=== PATIENT | female | born 1975 | race Hispanic/Latino ===

== ENCOUNTER 2024-04-09 21:15 | Emergency (ER) | payer OTHER ==
--- OUTSIDE RECORDS SUMMARY | 2024-04-09 21:18 | XMS REPORT | Continuity of Care Document ---
Author Name Unknown Address [address] [facility] [address] [place], [place] [id number] [place] [address] thconnect Address [address] [facility] [address] [place] [address] Care Team Providers Care Family Resource Management Professor Name Role Phone UZMA FERRARI Attending Clinician Unavailable LAB90 Attending Clinician Unavailable Payers Payer Name Policy Type Policy Number Effective Date Expirati on Date Source [employer] 94 ON 9 [id number] 2023 00:00:00 Problems Condition Name Condition Details Condition Category Status Onset Date Resolution Date Last Treatment Date Treating Clinician Comments Source BMI 50.0-59.9, adult BMI 50.0-59.9, adult Disease Active 03-15 00:00: 00 Naveen briseno Prediabete s Prediabete s Disease Active 03-15 00:00: 00 Naveen briseno Social History Social Habit Start Date Stop Date Quantity Comments Source History of tobacco use Passive smoker Naveen barney - External Sexual orientation Leroy Braga - External Alcoholic beverage intake 2024-03-15 00:00:00 2024-03-15 00:00:00 Ex-drinker (finding) Naveen Braga - External History of Social function 2024-03-15 00:00:00 2024-03-15 00:00:00 Naveen Braga - External Sex [birth year] at 1975 00:00:00 1975 00:00:00 Naveen Braga - External Smoking Status Start Date Stop Date Source Never smoked tobacco Naveen Braga - External Immunizations Ordered Immunization Name Filled Immunization Name Date Status Comments Source Influenza Virus Vaccine, No Preserv, age 6 months and up Unknown Completed Naveen Asaf lamasbold - External Covid-19 Vaccine Moderna (Spikevax), Mrna-lnp, Cm Protein, Pf Unknown Completed Naveen Braga - External Covid-19 Vaccine Moderna (Spikevax), Mrna-lnp, Cm Protein, Pf Unknown Completed Naveen Braga - External Tdap- (Boostrix, Adacel) Unknown Completed Naveen Braga - External Tdap- (Boostrix, Adacel) Unknown Completed Naveen Braga - External Vital Signs Vital Name Observation Time Observation Value Comments S ource Systolic blood pressure 2024-03-15 14:40:00 102 mm[Hg] Naveen Miramonteso ld - External Diastolic blood pressure 2024-03-15 14:40:00 70 mm[Hg] Naveen Miramonteso ld - External Heart rate 2024-03-15 14:40:00 76 /min Tuanse ita Braga - External Body temperature 2024-03-15 14:40:00 35.94 Ileana Naveen Braga - External Respiratory rate 2024-03-15 14:40:00 16 /min Naveen Braga - External Body height 2024-03-15 14:40:00 152.4 cm Glory Braga - External Body weight 2024-03-15 14:40:00 130.182 kg Glory lamas Seybold - External BMI 2024-03-15 14:40:00 56.05 kg/m2 Glory lamas Seybold - External Encounters Start Date/Time End Date/Time Encounter Type Admission Type Attending [facility] Care Department Encounter ID Source 2024-05-08 08:00:00 2024-05-08 08:00:00 Outpatient UZMA FERRARI [id number] Naveen Braga 2024-04-24 11:00:00 2024-04-24 11:00:00 Outpatient UZMA FERRARI [id number] Naveen Braga 2024-03-15 10:25:00 2024-03-15 10:25:00 Outpatient LAB90 [facility]OD[facility] [id number] [facility] 2024-03-15 09:30:00 2024-03-15 09:30:00 Outpatient UZMA FERRARIALESSANDRO HODGE [id number] Naveen Braga 2023-11-02 08:58:55 2023-11-02 08:58:55 Outpatient [facility] [id number] 2023-07-14 08:49:44 2023-07-14 08:49:44 Outpatient [facility] [address] 2023-07-07 16:08:09 2023-07-07 16:08:09 Outpatient [facility] [address] 2023-07-06 10:51:46 2023-07-06 10:51:46 Outpatient [facility] [address] 2023-04-14 14:48:34 2023-04-14 14:48:34 Outpatient [facility] [id number] Notes Date/Time Note Provider Source 2024-03-15 09:48:46 Chief Complaint Patient presents with [facility] Care Establishing care. Milka Bazan MA II [facility]
[2024-04-09 23:52] LABS: Specific Gravity 1.023 (1.005-1.030); Sqamous Epithelial None Seen /HPF (None Seen); Urine Bacteria None Seen /HPF (<20); Urine Bilirubin NEGATIVE (Negative); Urine Blood Negative (Negative); Urine Clarity Extremely Turbid (Clear); Urine Color Yellow (Yellow); Urine Culture Reflex Order NOT NEEDED; Urine Glucose NEGATIVE (Negative); Urine Ketones NEGATIVE (Negative); Urine Microscopic Reflex YN ORDER UMIC; Urine Nitrite NEGATIVE (Negative); Urine Protein TRACE (Negative); Urine RBC None Seen /HPF (None Seen); Urine Urobilinogen 1+ (Normal); Urine WBC None Seen /HPF (<5)
[2024-04-10 01:54] LABS: Absolute Eosinophils 0.3 K/uL (0-0.5); Absolute Monocytes 0.5 K/uL (0.1-1.3); Absolute Neutrophil 5.2 K/uL (1.8-8.0); Basophils % 0.3 % (0-1.3); Eosinophils % 3.3 % (0-4.4); Hemoglobin 13.5 g/dL (12.0-15.0); Lymphocytes % 33.3 % (15.3-44.8); MCH 28.4 pg (27.0-35.0); MCV 86.2 fL (80-100); MPV 7.9 fL (7.6-11.3); Neutrophils % 57.1 % (41.7-73.7); Platelets 288 thou/uL (152-406); RBC Red Blood Cell Count 4.76 M/uL (3.86-4.86); Red Cell Distribution Width 14.3 % (12.1-15.2)
[2024-04-10 02:03] LABS: Albumin 3.6 g/dL (3.4-5.0); Albumin/Globulin Ratio 0.8 (1.1-1.8); Anion Gap 7.8 mEq/L (5.0-15.0); Bilirubin Total 0.4 mg/dL (0.2-1.0); Globulin 4.4 g/dL (2.3-3.5); Potassium 3.8 mEq/L (3.5-5.1)
[2024-04-10] MEDS ORDERED: KETOROLAC 30 MG/ML INJ ONE (02:27)
[2024-04-10] MEDS ORDERED: NA CHLORIDE 0.9% 1,000 ML ONE (02:28)
--- NOTE | 2024-04-10 03:13 | ER ---
Nurse's Notes [facility] Name: Chitra Garzon Age: 48 yrs Sex: Female : 1975 Arrival Date: 04/09/2024 Time: 21:15 Bed 12 Private MD: Diagnosis: Other ovarian cysts Presentation: 04/09 22:13 Chief complaint: Patient's son or daughter states: Lower abdomen hurts, uterus hurts, vc1 hurts to pee, lower back hurts, peeing a little at a time. Coronavirus screen: Client denies travel out of the [place] in the last 14 days. At this time, the client does not indicate any symptoms associated with coronavirus-19. Ebola Screen: Patient negative for fever greater than or equal to 101.5 degrees Fahrenheit, and additional compatible Ebola Virus Disease symptoms Patient denies exposure to infectious person. Patient denies travel to an Ebola-affected area in the 21 days before illness onset. No symptoms or risks identified at this time. Initial Sepsis Screen: Does the patient meet any 2 criteria? No. Patient's initial sepsis screen is negative. Does the patient have a suspected source of infection? No. Patient's initial sepsis screen is negative. Risk Assessment: Do you want to hurt yourself or someone else? Patient reports no desire to harm self or others. Onset of symptoms is unknown. 22:13 Method Of Arrival: Ambulatory vc1 22:13 Acuity: JAYDON 3 vc1 Triage Assessment: 04/10 04:00 General:. General: Appears in no apparent distress. uncomfortable, Behavior is calm, vc1 cooperative, appropriate for age. 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 - Infectious Disease History:: Denies. - Social history:: Smoking status: Patient denies any tobacco usage or history of. Screenin/26 01:05 [facility] ED Fall Risk Assessment (Adult) History of falling in the last 3 months, vc1 including since admission No falls in past 3 months (0 pts) Confusion or Disorientation No (0 pts) Intoxicated or Sedated No (0 pts) Impaired Gait No (0 pts) Mobility Assist Device Used No (0 pt) Altered Elimination Yes (1 pt) Score/Fall Risk Level 0 - 2 = Low Risk Oriented to surroundings, Maintained a safe environment, Educated pt \T\ family on fall prevention, incl call for assistance when getting out of bed. 04:29 [facility] ED Fall Risk Assessment (Adult). Abuse screen: Denies threats or abuse. vc1 Nutritional screening: No deficits noted. Tuberculosis screening: No symptoms or risk factors identified. Assessment: 01:05 General: Appears in no apparent distress. uncomfortable, obese, well groomed, well vc1 developed, well nourished, Behavior is calm, cooperative, appropriate for age. Pain: Complains of pain in suprapubic area Pain radiates to low back area Pain currently is 6 out of 10 on a pain scale. Quality of pain is described as pressure, radiating, sharp. Neuro: Level of Consciousness is awake, alert, obeys commands, Oriented to person, place, time, situation, Appropriate for age. Cardiovascular: Heart tones S1 S2 Capillary refill < 3 seconds Patient's skin is warm and dry. Respiratory: Airway is patent Respiratory effort is even, unlabored, Respiratory pattern is regular, symmetrical, Breath sounds are clear bilaterally. GI: No deficits noted. No signs and/or symptoms were reported involving the gastrointestinal system. : Reports burning with urination, cramping, in bilateral lower quadrant(s) lower back urinary frequency. EENT: No deficits noted. No signs and/or symptoms were reported regarding the EENT system. Derm: No deficits noted. No signs and/or symptoms reported regarding the dermatologic system. 04:00 Reassessment: Patient appears in no apparent distress at this time. Patient and/or vc1 family updated on plan of care and expected duration. Pain level reassessed. Patient is alert, oriented x 3, equal unlabored respirations, skin warm/dry/pink. Patient states feeling better. Patient states symptoms have improved. Vital Signs: 04/09 22:18 BP 149 / 76; Pulse 80; Resp 16; Temp 97; Pulse Ox 99% ; vc1 04/10 04:30 BP 136 / 72; Pulse 78; Resp 17; Temp 97.6; Pulse Ox 99% ; vc1 ED Course: 04/09 21:18 Patient arrived in ED. jj6 21:29 Ren[facility] Valdez [facility]C [facility] kb 21:29 Luis Hernadez MD is Attending Physician. kb 22:16 Triage completed. vc1 22:17 Arm band placed on in hand. vc1 04/10 01:05 Patient has correct armband on for positive identification. Bed in low position. Call vc1 light in reach. 01:39 CBC with Diff Sent. ty 01:39 CMP Sent. ty 01:39 Lipase Sent. ty 01:39 Initial lab(s) drawn, by me, sent to lab. Inserted saline lock: 20 gauge in left ty antecubital area, using aseptic technique. Blood collected. Flushed with 10 mL NS. 02:24 CT Abd/Pelvis - IV Contrast Only In Process Unspecified. EDMS 03:13 Vivian Brown MD is Referral Physician. rt 04:30 Provided Education on: F/U WITH OBGYN. vc1 04:30 No provider procedures requiring assistance completed. IV discontinued, intact, vc1 bleeding controlled, No redness/swelling at site. Pressure dressing applied. Administered Medications: 02:39 Drug: NS 0.9% IV 1000 ml IV at 1 bolus Per protocol; 1000 mL bolus Route: IV; Rate: 1 vc1 bolus; Site: left antecubital; 03:40 Follow up: IV Status: Completed infusion; IV Intake: 1000ml vc1 02:39 Drug: TORadol - Ketorolac IVP 15 mg IVP once Route: IVP; Site: left antecubital; vc1 03:00 Follow up: Response: No adverse reaction; Marked relief of symptoms; Pain is decreased vc1 Medication: 04:30 VIS not applicable for this client. vc1 Intake: 03:40 IV: 1000ml; Total: 1000ml. vc1 Outcome: 03:13 Discharge ordered by . rt 04:15 Discharged to home ambulatory, with family, vc1 04:15 Condition: good 04:15 Discharge instructions given to patient, family, Instructed on discharge instructions, follow up and referral plans. medication usage, Demonstrated understanding of instructions, follow-up care, medications, Prescriptions given X 1, 04:30 Patient left the ED. vc1 Signatures: Dispatcher [employer] EDFL Renetta Valdez FNP-C FNP-CkDebi Johnson jj6 Radha Miguel RN RN vc1 Luis Hernadez MD MD rt Zenon Steen Corrections: (The following items were deleted from the chart) 04/09 22:19 22:13 BP 149 / 76; Pulse 80bpm; Resp 16bpm; Pulse Ox 100%; Temp 96.5F; 117.93 kg; vc1 Height 5 ft. 2 in.; BMI: 47.5; Pain 05/25, Adult; vc1
--- NOTE | 2024-04-10 03:13 | EDPHYS ---
Physician Documentation [facility] Name: Chitra Grazon Age: 48 yrs Sex: Female : 1975 Arrival Date: 04/09/2024 Time: 21:15 Bed 12 Private MD: ED Physician Luis Hernadez HPI: 04/10 00:38 This 48 yrs old Female presents to ER via Ambulatory with complaints of Pelvic kb Pain. 00:38 Pt is a 48 year old female who presents with dysuria, urinating small amounts, kb suprapubic pain that radiates to back. Denies fever, nausea, vomiting, diarrhea. No alleviating or aggravating factors. 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 - Infectious Disease History:: Denies. - Social history:: Smoking status: Patient denies any tobacco usage or history of. ROS: 04/10 00:37 Constitutional: As per HPI kb Exam: 00:38 Constitutional: This is a well developed, well nourished patient who is awake, alert, kb and in no acute distress. Head/Face: Normocephalic, atraumatic. ENT: Moist Mucous membranes Cardiovascular: Regular rate Respiratory: Respirations even and unlabored. No increased work of breathing. Talking in full sentences Back: No spinal tenderness. No costovertebral tenderness. Full range of motion. Skin: Warm, dry with normal turgor. Normal color. MS/ Extremity: Pulses equal, no cyanosis. Neurovascular intact. Full, normal range of motion. Neuro: Awake and alert, GCS 15, oriented to person, place, time, and situation. Moves all extremities. Normal gait. 00:38 Abdomen/GI: Palpation: soft, in all quadrants, mild abdominal tenderness, in the suprapubic area, 01:13 : Pelvic Exam: External exam: is normal, kb Vital Signs: 04/09 22:18 BP 149 / 76; Pulse 80; Resp 16; Temp 97; Pulse Ox 99% ; vc1 04/10 04:30 BP 136 / 72; Pulse 78; Resp 17; Temp 97.6; Pulse Ox 99% ; vc1 MDM: 04/09 21:29 Patient medically screened. 04/10 00:39 Differential diagnosis: uti, pyelonephritis, kidney stone. Data reviewed: vital signs, kb nurses notes. Test considered but Not performed: CT: ct scan considered but pt has no hematuria, no bacteria/wbc, no CVA tenderness. Historians other than the Patient: Family Member: family member. 01:22 Transition of care: After a detail discussion of the patient's case, care is kb transferred to Luis Hernadez MD. 04/09 22:18 Order name: Urinalysis w/ reflexes; Complete Time: 23:56 vc1 04/10 01:13 Order name: CBC with Diff; Complete Time: 02:06 kb 04/10 01:13 Order name: CMP; Complete Time: 02:06 kb 04/10 01:13 Order name: Lipase; Complete Time: 02:06 kb 04/10 01:13 Order name: CT Abd/Pelvis - IV Contrast Only 04/10 01:13 Order name: IV Saline Lock; Complete Time: 01:39 kb 04/10 01:13 Order name: Labs collected and sent; Complete Time: 01:39 kb Administered Medications: 02:39 Drug: NS 0.9% IV 1000 ml IV at 1 bolus Per protocol; 1000 mL bolus Route: IV; Rate: 1 vc1 bolus; Site: left antecubital; 03:40 Follow up: IV Status: Completed infusion; IV Intake: 1000ml vc1 02:39 Drug: TORadol - Ketorolac IVP 15 mg IVP once Route: IVP; Site: left antecubital; vc1 03:00 Follow up: Response: No adverse reaction; Marked relief of symptoms; Pain is decreased vc1 Disposition: 05:09 Co-signature as Attending Physician, Luis Hernadez MD I reviewed the patient's care rt provided by Advanced Practice Provider \T\ agree w/ the diagnosis \T\ care plan. I personally saw the pt \T\ performed a substantive portion of the visit, incldng all aspects of the (History/Exam/Medical Decision Making). Discussed with patient findings of ovarian cyst as well as radiologist recommendations for follow-up ultrasound. Patient instructed to follow-up with MIMEOGRAPH OPERATOR.. Disposition Summary: 04/10/24 03:13 Discharge Ordered Notes: Location: Home rt Problem: new rt Symptoms: have improved rt Condition: Stable rt Diagnosis - Other ovarian cysts rt Followup: rt - With: Vivian Brown MD - When: 2 - 3 days - Reason: Discharge Instructions: - Discharge Summary Sheet rt - Ovarian Cyst rt Forms: - Medication Reconciliation Form rt - Antibiotic Education rt - Prescription Opioid Use rt - Patient Portal Instructions rt - Leadership Thank You Letter rt Prescriptions: - TORADOL 10 MG TAB - take 1 tablet ORAL route every 6 hours as needed for pain; 15 tablet; Refills: rt 0, Product Selection Permitted Signatures: Dispatcher [employer] EDMS Renetta Valdez FNP-C FNP-Ckb Calcote, Vanessa, RN RN vc1 Luis Hernadez MD MD rt Corrections: (The following items were deleted from the chart) 01:13 01:13 CBC+H.LAB.BRZ ordered. EDMS EDMS 01:13 01:13 COMPREHENSIVE METABOLIC PANEL+C.LAB.BRZ ordered. EDMS EDMS 01:13 01:13 LIPASE+C.LAB.BRZ ordered. EDMS EDMS
[2024-04-10 04:51] VITALS: BP 149/76; TEMP 97; O2SAT 99
--- NOTE | 2024-04-12 07:57 | RAD REPORT ---
EXAM DESCRIPTION: CT - Abdomen Pelvis W Contrast - 04/10/2024 5:55 am EXAM DESCRIPTION: CT - Abdomen Pelvis W Contrast - 04/10/2024 5:55 am CLINICAL HISTORY: Female, 48 years old, ABD PAIN COMPARISON: None. TECHNIQUE: CT acquisition of the abdomen and pelvis following the administration of IV contrast. Cor onal and sagittal reformatted images provided. This exam was performed according to departmental dose -optimization program which includes automated exposure control, adjustment of the mA and/or kV accor ding to patient size, and/or use of iterative reconstruction technique. FINDINGS: SUPPORTIVE DEVICES: None. LOWER CHEST: Small nodular confluent opacities in the peripheral right lung base with subpleural spar ing. Unremarkable imaged heart. ABDOMEN AND PELVIS: Liver: Diffuse hypoenhancement relative to the spleen. Length measures 24 cm. Gallbladder and bile ducts: Normal. Pancreas: Normal. Spleen: Normal. Adrenal glands: Normal. Kidneys and ureters: Normal. Bladder: Normal. Reproductive organs: Simple right ovarian cyst measuring 3.4 x 3 x 3.1 cm. Unremarkable uterus and le ft ovary. GI tract: Normal caliber without wall thickening. No evidence of appendicitis. Vessels: Unremarkable. Lymph nodes: No evident adenopathy. Peritoneum: No evidence of ascites, fluid collection, or free air. Abdominal wall: Small fat containing umbilical hernia. MUSCULOSKELETAL: No acute osseous abnormality. Degenerative change of the spine and pelvis. IMPRESSION: 1. No acute abdominopelvic finding. 2. Hepatomegaly and steatosis. 3. Simple right ovarian 3.4 cm cyst. If patient is postmenopausal, follow-up ultrasound recommended in 3-6 months; if premenopausal, no follow-up imaging is required. 4. Mild airspace disease in the right lung base most consistent with atypical infection. Electronically signed by: Uvaldo Rodas MD 04/10/2024 02:50 AM CDT Due to temporary technical issues with the PACS/Fluency reporting system, reports are being signed by the in house radiologist without review as a courtesy to ensure prompt reporting. The interpreting r adiologist is fully responsible for the content of the report.
== END 2024-04-10 04:30 | disposition home or self-care (01) ==
LOC: ER 21:15
DX: N83.299 Other ovarian cyst, unspecified side (principal); R30.0 Dysuria
CPT/HCPCS: 85025; 81001; 36415; 83690; 80053; 74177; Q9967; J7030; 96361; 96374; 99284

== ENCOUNTER 2024-06-10 20:45 | Emergency (ER) | payer OTHER ==
--- NOTE | 2024-06-10 22:26 | RAD REPORT ---
EXAMINATION: US Abdomen Exam Limited CLINICAL HISTORY: [facility] Y ABD PAIN Bed Name: 14 COMPARISON: CT abdomen and pelvis 04/10/2024 TECHNIQUE: Limited upper abdominal grayscale and color flow sonographic images. FINDINGS: Gallbladder: Normal. No gallstones. No gallbladder wall thickening or pericholecystic fluid. Reported ly negative sonographic Zazueta sign. Bile ducts: No intrahepatic or extrahepatic biliary dilatation. Common bile duct measures 3 mm. Liver: Visualized portions of the liver demonstrate normal echogenicity with no suspicious findings. Fluid: No ascites. IMPRESSION: No abnormalities on right upper quadrant ultrasound.
[2024-06-10 22:50] LABS: Hemoglobin 14.4 g/dL (12.0-15.0)
[2024-06-10 22:50] LABS: Specific Gravity 1.009 (1.005-1.030); Sqamous Epithelial <5 /HPF (None Seen); Urine Bacteria <20 /HPF (<20); Urine Bilirubin NEGATIVE (Negative); Urine Blood Negative (Negative); Urine Clarity Clear (Clear); Urine Color Light-Yellow (Yellow); Urine Culture Reflex Order NOT NEEDED; Urine Glucose NEGATIVE (Negative); Urine Ketones 1+ (Negative); Urine Microscopic Reflex YN ORDER UMIC; Urine Nitrite NEGATIVE (Negative); Urine Protein NEGATIVE (Negative); Urine RBC <5 /HPF (None Seen); Urine Urobilinogen Normal (Normal); Urine WBC <5 /HPF (<5)
[2024-06-10 22:53] LABS: Absolute Eosinophils 0.2 K/uL (0-0.5); Absolute Lymphocytes (CBC) 2.6 K/uL (0.7-4.9); Absolute Monocytes 0.5 K/uL (0.1-1.3); Basophils % 0.2 % (0-1.3); Eosinophils % 2.5 % (0-4.4); Hematocrit 43.1 % (36.0-45.0); Lymphocytes % 35.9 % (15.3-44.8); MCH 28.9 pg (27.0-35.0); MCHC 33.4 g/dL (32.0-36.0); MCV 86.6 fL (80-100); Monocytes % 7.5 % (3.3-12.3); Neutrophils % 53.9 % (41.7-73.7); Nucleated Red Blood Cells % 0.2 % (0-0); Platelets 241 thou/uL (152-406); RBC Red Blood Cell Count 4.97 M/uL (3.86-4.86); Red Cell Distribution Width 15.5 % (12.1-15.2)
[2024-06-10 22:56] LABS: Albumin 3.7 g/dL (3.4-5.0); Albumin/Globulin Ratio 0.9 (1.1-1.8); Anion Gap 7.7 mEq/L (5.0-15.0); Bilirubin Total 0.6 mg/dL (0.2-1.0); Globulin 4.2 g/dL (2.3-3.5); Potassium 3.7 mEq/L (3.5-5.1); Protein, Total 7.9 g/dL (6.4-8.2)
[2024-06-10] MEDS ORDERED: MORPHINE 4 MG/ML SYR ONE (23:29)
[2024-06-10] MEDS ORDERED: FAMOTIDINE 20 MG/2 ML VIAL IV ONE (23:29)
[2024-06-10] MEDS ORDERED: ONDANSETRON 4 MG/2 ML VIAL ONE (23:29)
--- NOTE | 2024-06-11 00:07 | RAD REPORT ---
EXAM: CT ABDOMEN AND PELVIS WITH CONTRAST DATE: 06/10/2024 9:00 PM CDT INDICATION: IV ONLY Bed Name: 14 COMPARISON: CT of the abdomen and pelvis report 04/10/2024, images are currently unavailable. TECHNIQUE: Volumetric CT of the abdomen and pelvis acquired following the intravenous administration of contrast. Axial, coronal and sagittal images are provided. The study was performed using dose reduction techniques including automated exposure control and/or adjustment of the MA and/or KV accor ding to patient size, and/or iterative reconstruction techniques. FINDINGS: Lower thorax: Patchy nonspecific right middle and lower lobe groundglass opacities. Differential diag nosis would include atypical inflammatory and/or infectious alveolitis. No consolidation or pleural effusion. Cardiac silhouette is normal in size. Liver: 1.5 cm in CC dimension left hepatic segment IV periligamentous hypoattenuation, most suggestiv e of focal adipose tissue deposition. Right lobe of the liver measures 20 cm in CC dimension. Biliary tree: No intra- or extrahepatic bile duct dilation. Gallbladder: No calcified cholelithiasis or pericholecystic inflammation. Pancreas: No pancreatic lesion. Spleen: No splenic lesion. Adrenals: No adrenal gland lesion. Kidneys and ureters: No renal lesion, nephrolithiasis, or hydronephrosis. Bladder/reproductive organs: No urinary bladder lesion. Uterus in situ. Incidental 1.4 cm right ovari an dominant cystic follicle. Gastrointestinal tract: Lower esophagus/stomach: Stomach is partially decompressed, limiting evaluation. Small bowel: No small bowel obstruction. Colon: Moderate retained colonic stool. Appendix: Normal caliber partially gas-filled appendix. Peritoneum, mesentery and retroperitoneum: No free air, ascites or loculated fluid. Lymph nodes: No pathologic adenopathy based on size criteria. Vasculature: Aorta and branches: Aorta has a normal diameter. IVC and veins: IVC has a normal diameter. Bones: Degenerative changes, including mild multilevel spondylosis. Soft tissues: Small umbilical hernia containing adipose tissue, with fascial defect measuring 1 cm in transverse dimension and hernial sac measuring 2.7 cm in AP dimension. IMPRESSION: 1. Moderate retained colonic stool. 2. Small umbilical hernia containing adipose tissue. 3. Hepatomegaly. 4. Additional incidental findings as discussed. Electronically signed by: Benoit Duron MD 06/10/2024 11:57 PM CDT RP Due to temporary technical issues with the PACS/[employer] reporting system, reports are being bladimir d by the in-house radiologist without review as a courtesy to ensure prompt reporting the interpreting radiologist is fully responsible for the content of the report. Transcribed Date/Time: 06/11/2024 12:07 AM
--- NOTE | 2024-06-11 01:01 | EDPHYS ---
Physician Documentation [facility] Name: Chitra Garzon Age: 49 yrs Sex: Female : 1975 Arrival Date: 06/10/2024 Time: 20:45 Bed 14 Private MD: ED Physician Jorden Martin HPI: 06/10 22:06 This 49 yrs old Female presents to ER via Ambulatory with complaints of rn Abdominal Pain. 22:06 The patient presents with abdominal pain in the upper abdomen, in the left upper rn quadrant. Onset: The symptoms/episode began/occurred 3 week(s) ago. The symptoms do not radiate. Associated signs and symptoms: Pertinent positives: anorexia, Pertinent negatives: blood in stools, chest pain, constipation, diarrhea, dysuria, fever, hematuria, shortness of breath, vaginal discharge, vomiting, vomiting blood. Modifying factors: The symptoms are alleviated by nothing, the symptoms are aggravated by touching the area. Severity of pain: At its worst the pain was mild in the emergency department the pain is unchanged. The patient has experienced a previous episode. Patient reports has been having weeks to months of abdominal pain, seen at outside ER and diagnosed with pelvic prolapse, has scheduled surgery later this month, next week for that. States has been having suprapubic pain for months, now over the last 2 days has been radiating to left upper quadrant. No fever or chills. No trauma. No blood in stool. No vomiting or diarrhea. Also reports told in the past has "stomach bacteria".. 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 - Infectious Disease History:: Denies. - Social history:: Smoking status: unknown. - Family history:: not pertinent. - Hospitalizations: : No recent hospitalization is reported. ROS: 22:06 Constitutional: Negative for fever, chills, and weight loss, Cardiovascular: Negative rn for chest pain, palpitations, and edema, Respiratory: Negative for shortness of breath, cough, wheezing, and pleuritic chest pain, Abdomen/GI: Positive for abdominal pain Back: Negative for injury and pain, : Negative for injury, bleeding, discharge, and swelling, MS/Extremity: Negative for injury and deformity, Neuro: Negative for headache, weakness, numbness, tingling, and seizure, Exam: 22:06 Constitutional: This is a well developed, well nourished patient who is awake, alert, rn and in no acute distress. Cardiovascular: Regular rate and rhythm. No pulse deficits. Respiratory: Mild tachypnea, appears related to pain Abdomen/GI: Soft, mild suprapubic/left lower quadrant/left upper quadrant tenderness. No peritoneal signs. Vital Signs: 21:04 BP 141 / 92; Pulse 79; Resp 18; Temp 98.2; Pulse Ox 98% ; Weight 113.4 kg; Height 5 ft. kj2 1 in. ; Pain 05/25; 22:39 BP 141 / 86; Pulse 76; Resp 18; Temp 97.9; Pulse Ox 99% on R/A; kj2 06/11 01:16 BP 129 / 87; Pulse 74; Resp 18; Temp 98.2; Pulse Ox 100% on R/A; kj2 06/10 21:04 Body Mass Index 47.24 (113.40 kg, 154.94 cm) kj2 06/10 21:04 Pain Scale: Adult kj2 MDM: 06/10 21:00 Medical Screening Exam initiated rn 06/11 00:59 Differential diagnosis: appendicitis, bowel obstruction, diverticulitis, gastritis, rn gastroesophageal reflux disease, non-specific abd pain, pancreatitis, Peptic Ulcer Disease, Perf. Duodenal Ulcer, Perf. Gastric Ulcer, Ureterolithiasis. Data reviewed: vital signs, nurses notes, lab test result(s), radiologic studies, CT scan, and as a result, I will discharge patient. Counseling: I had a detailed discussion with the patient and/or guardian regarding the historical points, exam findings, and any diagnostic results supporting the discharge/admit diagnosis, lab results, radiology results, the need for outpatient follow up, to return to the emergency department if symptoms worsen or persist or if there are any questions or concerns that arise at home. Response to treatment: the patient's symptoms have mildly improved after treatment, and as a result, I will discharge patient. Special discussion: I discussed with the patient/guardian in detail that at this point there is no indication for admission to the hospital. It is understood, however, that if the symptoms persist or worsen the patient needs to return immediately for re-evaluation. ED course: No acute findings and workup here including labs/urine/CT. CT shows constipation, uncomplicated umbilical hernia and fatty liver. Offered magnesium citrate, patient would like to take it in comfort of her own home. Return precautions given and understood.. 06/10 21:00 Order name: CBC with Diff; Complete Time: 22:56 rn 06/10 21:00 Order name: CMP; Complete Time: 22:56 rn 06/10 21: Order name: Lipase; Complete Time: 22:56 rn 06/10 21:18 Order name: Urinalysis w/ reflexes; Complete Time: 22:56 rn 06/10 21:00 Order name: CT Abd/Pelvis - IV Contrast Only rn 06/10 21: Order name: US Abdomen Limited; Complete Time: 22:41 rn 06/10 21: Order name: IV Saline Lock; Complete Time: 22:02 rn 06/10 21:00 Order name: Labs collected and sent; Complete Time: 22:02 rn Administered Medications: 06/10 23:30 Drug: Famotidine IVP 20 mg IVP once; dilute with 10 mL 0.9% NaCl; give over 2 minutes kj2 Route: IVP; Site: left antecubital; 06/11 01:14 Follow up: Response: No adverse reaction kj2 06/10 23:34 Not Given (Duplicate Order): morphineor iv 4 mg IVP once over 4 mins rn 23:35 Drug: Ondansetron IVP 4 mg IVP once; over 2 minutes Route: IVP; Site: left antecubital; kj2 06/11 01:14 Follow up: Response: No adverse reaction; Nausea is decreased kj2 01:27 Drug: Magnesium Citrate PO Liquid 300 ml PO once Route: PO; kj2 01:27 Follow up: Response: Medication administered at discharge. kj2 Disposition Summary: 06/11/24 01:01 Discharge Ordered Notes: Location: Home rn Problem: an ongoing problem rn Symptoms: have improved rn Condition: Stable rn Diagnosis - Abdominal pain, Generalized rn - Constipation, unspecified rn - Umbilical hernia without obstruction or gangrene rn Followup: rn - With: Private Physician - When: As needed - Reason: Recheck today's complaints, Re-evaluation by your physician Discharge Instructions: - Discharge Summary Sheet rn - Abdominal Pain, Adult rn - Constipation, Adult rn - Umbilical Hernia, Adult rn Forms: - Medication Reconciliation Form rn - Antibiotic university intern - Prescription Opioid Use rn - Patient Portal Instructions rn - Leadership Thank You Letter rn Signatures: Dispatcher [employer] Jorden Harrison MD MD rn Jordan, Krystal, RN RN kj2
--- NOTE | 2024-06-11 01:01 | ER ---
Nurse's Notes [facility] Name: Chitra Garzon Age: 49 yrs Sex: Female : 1975 Arrival Date: 06/10/2024 Time: 20:45 Bed 14 Private MD: Diagnosis: Abdominal pain, Generalized;Constipation, unspecified;Umbilical hernia without obstruction or gangrene Presentation: 06/10 21:00 Chief complaint: Patient states: ABDOMINAL PAIN. Coronavirus screen: At this time, the kj2 client does not indicate any symptoms associated with coronavirus-19. Ebola Screen: No symptoms or risks identified at this time. Initial Sepsis Screen: Does the patient meet any 2 criteria? No. Patient's initial sepsis screen is negative. Does the patient have a suspected source of infection? No. Patient's initial sepsis screen is negative. Risk Assessment: Do you want to hurt yourself or someone else? Patient reports no desire to harm self or others. Onset of symptoms was June 04, 2024. 21:00 Method Of Arrival: Ambulatory kj2 21:00 Acuity: JAYDON 3 kj2 Triage Assessment: 21:00 General: Appears in no apparent distress. uncomfortable, Behavior is cooperative. Pain: kj2 Complains of pain in ABDOMINAL PAIN Pain currently is 8 out of 10 on a pain scale. Neuro: Level of Consciousness is awake, Oriented to person, place, time, situation. Cardiovascular: Patient's skin is warm and dry. Respiratory: Airway is patent Respiratory effort is even, unlabored, labored. GI: Abdomen is non-distended. : No signs and/or symptoms were reported regarding the genitourinary system. 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 - Infectious Disease History:: Denies. - Social history:: Smoking status: unknown. - Family history:: not pertinent. - Hospitalizations: : No recent hospitalization is reported. Screenin:00 [facility] ED Fall Risk Assessment (Adult) History of falling in the last 3 months, kj2 including since admission No falls in past 3 months (0 pts) Confusion or Disorientation No (0 pts) Intoxicated or Sedated No (0 pts) Impaired Gait No (0 pts) Mobility Assist Device Used No (0 pt) Altered Elimination No (0 pt) Score/Fall Risk Level 0 - 2 = Low Risk Maintained a safe environment, Hourly rounding (assess needs \T\ fall precautionary measures) done. Abuse screen: Denies threats or abuse. Denies injuries from another. Nutritional screening: No deficits noted. Tuberculosis screening: No symptoms or risk factors identified. Assessment: 21:00 General: SEE TRIAGE. kj2 22:02 Reassessment: Patient appears in no apparent distress at this time. Patient and/or kj2 family updated on plan of care and expected duration. Pain level reassessed. Patient is alert, oriented x 3, equal unlabored respirations, skin warm/dry/pink. 22:47 Reassessment: Patient appears in no apparent distress at this time. Patient and/or kj2 family updated on plan of care and expected duration. Pain level reassessed. Patient is alert, oriented x 3, equal unlabored respirations, skin warm/dry/pink. 06/11 00:08 Reassessment: Patient appears in no apparent distress at this time. Patient and/or kj2 family updated on plan of care and expected duration. Pain level reassessed. Patient is alert, oriented x 3, equal unlabored respirations, skin warm/dry/pink. 01:15 GI: Bowel sounds present X 4 quads. Abd is non tender. kj2 :27 Reassessment: ADVISED PATIENT TO FINISH MAG CITRATE AT HOME. kj2 Vital Signs: 06/10 21:04 BP 141 / 92; Pulse 79; Resp 18; Temp 98.2; Pulse Ox 98% ; Weight 113.4 kg; Height 5 ft. kj2 1 in. ; Pain 05/25; 22:39 BP 141 / 86; Pulse 76; Resp 18; Temp 97.9; Pulse Ox 99% on R/A; kj2 06/11 01:16 BP 129 / 87; Pulse 74; Resp 18; Temp 98.2; Pulse Ox 100% on R/A; kj2 06/10 21:04 Body Mass Index 47.24 (113.40 kg, 154.94 cm) kj2 06/10 21:04 Pain Scale: Adult [facility] ED Course: 06/10 20:47 Patient arrived in ED. gm2 21:00 Jorden Martin MD is Attending Physician. rn 21:00 Patient has correct armband on for positive identification. Bed in low position. Call kj2 light in reach. Adult w/ patient. Provided Education on: CALL LIGHT. 21:04 Teresa Quintanilla, RN is Primary Nurse. kj2 21:35 US Abdomen Limited In Process Unspecified. EDMS 21:45 Triage completed. kj2 21:50 No provider procedures requiring assistance completed. kj2 22:01 Inserted saline lock: 20 gauge in left antecubital area, using aseptic technique. Blood kj2 collected. Flushed with 10 mL NS. 22:02 Urinalysis w/ reflexes Sent. kj2 22:03 Arm band placed on Patient placed in an exam room, on a stretcher. kj2 22:36 Urinalysis w/ reflexes Sent. kj2 23:08 CT Abd/Pelvis - IV Contrast Only In Process Unspecified. EDMS 06/11 01:16 IV discontinued, intact, bleeding controlled, No redness/swelling at site. Pressure kj2 dressing applied. Administered Medications: 06/10 23:30 Drug: Famotidine IVP 20 mg IVP once; dilute with 10 mL 0.9% NaCl; give over 2 minutes kj2 Route: IVP; Site: left antecubital; 06/11 01:14 Follow up: Response: No adverse reaction kj2 06/10 23:34 Not Given (Duplicate Order): morphineor iv 4 mg IVP once over 4 mins rn 23:35 Drug: Ondansetron IVP 4 mg IVP once; over 2 minutes Route: IVP; Site: left antecubital; kj2 06/11 01:14 Follow up: Response: No adverse reaction; Nausea is decreased kj2 01:27 Drug: Magnesium Citrate PO Liquid 300 ml PO once Route: PO; kj2 01:27 Follow up: Response: Medication administered at discharge. kj2 Medication: 06/10 21:49 VIS not applicable for this client. kj2 Outcome: 06/11 01:01 Discharge ordered by . rn 01:15 Condition: stable kj2 01:16 Discharged to home ambulatory, with family, kj2 01:16 Discharge instructions given to patient, family, 01:29 Patient left the ED. kj2 Signatures: Dispatcher [employer] EDNV Jorden Martin MD MD rn Mitchell, Ginger gm2 Teresa Quintanilla, CRISTINE RN kj2
[2024-06-11] MEDS ORDERED: MAGNESIUM CITRATE 300 ML BOT ONE (01:24)
[2024-06-11 12:59] VITALS: BP 129/87; TEMP 98.2; O2SAT 100
== END 2024-06-11 01:29 | disposition home or self-care (01) ==
LOC: ER 20:45
DX: R10.84 Generalized abdominal pain (principal); K59.00 Constipation, unspecified; K42.9 Umbilical hernia without obstruction or gangrene; Z88.5 Allergy status to narcotic agent
CPT/HCPCS: 85025; 81001; 36415; 83690; 80053; 74177; 76705; 96375; 96374; 99284; Q9967; J2405

== ENCOUNTER 2024-09-02 19:55 | Emergency (ER) | payer BC, OTHER ==
--- OUTSIDE RECORDS SUMMARY | 2024-09-02 19:58 | XMS REPORT | Clinical Summary ---
Author Name Unknown Organization [facility] Address [address] [place] [address] Care Team Providers Care Purification Operator Name Role Phone Unavailable Primary Care Provider Unavailabl e Encounters Date Type Department Care Team Description 06/15/2024 8:05 PM CDT Ancillary Procedure Image Library [address] [place] [id number] Cancer 06/15/2024 8:00 PM CDT Ancillary Procedure Image Library [address] [place] [id number] Cancer 05/26/2024 10:20 AM CDT Ancillary Procedure Mobile Mammography [address] [place] [id number] Jose Maciel MD Screening mammography 05/25/2024 Documentation Breast Imaging [address] [facility], 5th [place] [address] Aron Armstrong, RT after 09/03/2023 Family History Medical History Relation Name Comments Brain cancer Nephew Relation Name Status Comments Nephew Alive Social History Tobacco Use Types Packs/Day Years Used Date Smoking Tobacco: Never Assessed Comments No Sex and Gender Information Value Date Recorded Sex Assigned at Not on file Legal Sex Female 12:32 PM CDT Gender Identity Not on file Sexual Orientation Not on file Obstetrics History Para Term AB IAB SAB Ectopic Multiple Livin g Live Births 4 3 3 Date Outcome GA Total Labor Labor/2nd/3rd Weight Sex Type Anes PTL Carolina A1 A5 Name Clin Term Term Term Plan of Treatment Health Maintenance Due Date Last Done Comments COVID-19 Vaccine (2023-2 5 season) 2024 04/08/2021, 03/03/2021 Influenza Vaccine (#1) 2024 05/14/2016 Pneumococcal Vaccine: Pediatrics (0 to 5 Years) and At-Risk Patients (6 to 64 Years) Aged Out No longer eligible b ased on patient's age to complete this topic Procedures Procedure Name Priority Date/Time Associated Diagnosis Comments MOBILE MAMMO DIGITAL SCREENING BILATERAL W DEVON Routine 05/26/2024 10:39 AM CDT Screening mammography after 09/03/2023 Results * Mobile Mammography Screening Bilateral with Devon (05/26/2024 10:39 AM CDT) Anatomical Region Laterality Modality Breast Bilateral Mammography Impressions 05/26/2024 11:25 AM CDT Bilateral There is no mammographic evidence of malignancy. Overall BI-RAD Category: 1 - Negative Recommend return to annual screening mammography, due on 05/25/2025. Narrative 05/26/2024 11:25 AM CDT CLINICAL INDICATION: Patient is a 49 y.o. female and is seen for screening. Mobile Mammography Screening Bilateral with Devon Computer-aided detection was utilized by the radiologist in the interpretation of this examination. Tomosynthesis was performed in CC and MLO projections. COMPARISON: No comparisons were made when reading this study. FINDINGS: There are scattered areas of fibroglandular density. Bilateral No dominant mass, architectural distortion, or suspicious calcifications are identified. Justyn Nieves [facility] MAMMOGRAPHY ORDERABLES Final Result after 09/03/2023
[2024-09-02 22:29] LABS: Absolute Eosinophils 0.3 K/uL (0-0.5); Absolute Lymphocytes (CBC) 2.4 K/uL (0.7-4.9); Absolute Monocytes 0.5 K/uL (0.1-1.3); Absolute Neutrophil 4.5 K/uL (1.8-8.0); Basophils % 0.5 % (0-1.3); Hematocrit 38.2 % (36.0-45.0); Hemoglobin 12.6 g/dL (12.0-15.0); Lymphocytes % 31.5 % (15.3-44.8); MCH 27.7 pg (27.0-35.0); MCHC 33.1 g/dL (32.0-36.0); MCV 83.6 fL (80-100); MPV 9.1 fL (7.6-11.3); Nucleated Red Blood Cells % 0.1 % (0-0); Platelets 264 thou/uL (152-406); RBC Red Blood Cell Count 4.57 M/uL (3.86-4.86); Red Cell Distribution Width 14.8 % (12.1-15.2)
[2024-09-02 22:32] LABS: Albumin 3.2 g/dL (3.4-5.0); Albumin/Globulin Ratio 0.8 (1.1-1.8); Anion Gap 8.6 mEq/L (5.0-15.0); Bilirubin Total 0.5 mg/dL (0.2-1.0); Globulin 4.1 g/dL (2.3-3.5); Potassium 3.6 mEq/L (3.5-5.1); Protein, Total 7.3 g/dL (6.4-8.2)
[2024-09-02 22:33] LABS: Specific Gravity 1.006 (1.005-1.030); Urine Bacteria None Seen /HPF (<20); Urine Bilirubin NEGATIVE (Negative); Urine Blood Negative (Negative); Urine Clarity Clear (Clear); Urine Color Yellow (Yellow); Urine Crystals Unidentified Few /HPF (None Seen); Urine Culture Reflex Order NOT NEEDED; Urine Glucose NEGATIVE (Negative); Urine Ketones NEGATIVE (Negative); Urine Microscopic Reflex YN ORDER UMIC; Urine Nitrite NEGATIVE (Negative); Urine Protein NEGATIVE (Negative); Urine RBC <5 /HPF (None Seen); Urine Urobilinogen Normal (Normal); Urine pH 7.5 (5.0-7.0)
--- NOTE | 2024-09-02 22:50 | RAD REPORT ---
EXAMINATION: CT ABDOMEN AND PELVIS WITH CONTRAST CLINICAL INDICATION: Female, 49 years old.ABD PAIN TECHNIQUE: CT abdomen and pelvis was performed, after the administration of IV contrast, as per [facility] protocol. Axial, sagittal and coronal reconstructions were obtained. One or more of the following dose reduction techniques were used: Automated exposure control, adjustment of the mA and/o r kV according to patient size, and/or iterative reconstruction. Unless otherwise specified, incidental findings do not require dedicated imaging follow-up. [id number]. COMPARISON:06/10/2024 FINDINGS: LOWER CHEST: No acute process identified.No significant pericardial effusion. Mild circumferential th ickening of the distal esophagus which could reflect esophagitis. UPPER GI: No significant abnormality. LIVER: No significant focal abnormality. GALLBLADDER/BILE DUCTS: No biliary ductal dilatation.? PANCREAS: No mass, ductal dilation, or soraya-pancreatic fluid. SPLEEN: Unremarkable. ADRENALS: No adrenal masses. KIDNEYS AND URETERS: No hydronephrosis.No suspicious renal mass. ABDOMINAL AORTA AND OTHER VESSELS: Normal caliber aorta and IVC. PERITONEUM: No abnormal free fluid. No free air. LYMPH NODES: No pathologic lymphadenopathy. ABDOMINAL WALL: Small fat containing umbilical hernia. SMALL BOWEL/COLON: Small bowel has normal course and caliber. No colonic wall thickening or pericolon ic inflammatory changes.Normal appendix. URINARY BLADDER: Mild circumferential bladder wall thickening is nonspecific. REPRODUCTIVE ORGANS: Small adnexal cysts bilaterally, largest measuring 1.7 cm. Pre-menopause (<= 50 years if LMP unknown): <=3 cm: No follow-up imaging recommended MUSCULOSKELETAL: No acute or suspicious osseous abnormality. Mild disc height loss at L5-S1. ADDITIONAL FINDINGS: None. IMPRESSION: No definite acute or significant abnormalities seen in the abdomen or pelvis. Mild circumferential bl adder wall thickening which could indicate cystitis. Correlate urinalysis. Normal appendix.
--- NOTE | 2024-09-02 23:12 | EDPHYS ---
Physician Documentation [facility] [place] [place] Name: Chitra Garzon Age: 49 yrs Sex: Female : 1975 Arrival Date: 09/02/2024 Time: 19:55 Bed 14 Private MD: ED Physician Luis Hernadez HPI: 09/02 23:46 This 49 yrs old Female presents to ER via Ambulatory with complaints of Pelvic rt Pain. 23:46 Patient presents to the ED with a burning left upper quadrant pain rating downward. rt Patient had a recent endoscopy with diagnosis of an ulcer. Has an appointment with Dr. Carrero in September. Reports that she has had a hysterectomy and a rectal prolapse surgery. He is worried for complications regarding that. Denies other acute complaints at this time, symptoms are moderate in nature, no other aggravating alleviating factors.. 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 - Infectious Disease History:: Denies. - Social history:: Smoking status: Patient denies any tobacco usage or history of. - Family history:: not pertinent. ROS: 23:46 Constitutional: Negative for fever, chills, and weight loss, Cardiovascular: Negative rt for chest pain, palpitations, and edema, Respiratory: Negative for shortness of breath, cough, wheezing, and pleuritic chest pain, MS/Extremity: Negative for injury and deformity, Skin: Negative for injury, rash, and discoloration, Neuro: Negative for headache, weakness, numbness, tingling, and seizure, 23:46 Abdomen/GI: Positive for abdominal pain, Negative for vomiting, Exam: 23:46 Constitutional: This is a well developed, well nourished patient who is awake, alert, rt and in no acute distress. Head/Face: Normocephalic, atraumatic. Chest/axilla: Normal chest wall appearance and motion. Nontender with no deformity. No lesions are appreciated. Cardiovascular: Regular rate and rhythm with a normal S1 and S2. No gallops, murmurs, or rubs. Normal PMI, no JVD. No pulse deficits. Respiratory: Lungs have equal breath sounds bilaterally, clear to auscultation and percussion. No rales, rhonchi or wheezes noted. No increased work of breathing, no retractions or nasal flaring. Skin: Warm, dry with normal turgor. Normal color with no rashes, no lesions, and no evidence of cellulitis. MS/ Extremity: Pulses equal, no cyanosis. Neurovascular intact. Full, normal range of motion. Neuro: Awake and alert, GCS 15, oriented to person, place, time, and situation. Cranial nerves II-XII grossly intact. Motor strength 5/5 in all extremities. Sensory grossly intact. Cerebellar exam normal. Normal gait. Psych: Awake, alert, with orientation to person, place and time. Behavior, mood, and affect are within normal limits. 23:46 Abdomen/GI: Mild tenderness to the left upper quadrant, left lower quadrant without rebound, guarding, distention, Vital Signs: 20:22 BP 132 / 91; Pulse 79; Resp 18; Temp 97.7; Pulse Ox 97% ; Weight 104.33 kg; Height 5 cp4 ft. 4 in. ; Pain 9/10; 21:00 BP 111 / 65; Pulse 77; Resp 18; Temp 98.3; Pulse Ox 97% on R/A; ay 21:31 BP 97 / 61; Pulse 76; Resp 17; Pulse Ox 99% on R/A; ay 23:46 BP 103 / 71; Pulse 68; Resp 20; Pulse Ox 99% on R/A; ay 20:22 Body Mass Index 39.48 (104.33 kg, 162.56 cm) cp4 20:22 Pain Scale: Adult cp4 MDM: 20:30 Medical Screening Exam initiated rt 23:46 Differential Diagnosis Ulcer, gastritis, small bowel obstruction. Data reviewed: vital rt signs, nurses notes, lab test result(s), radiologic studies. I considered the following discharge prescriptions or medication management in the emergency department Medications were administered in the Emergency Department. See MAR. Independent interpretation of the following test(s) in the Emergency Department CT Scan: My interpretation is No bowel obstruction syndrome interpretation of CT scan images. Counseling: I had a detailed discussion with the patient and/or guardian regarding the historical points, exam findings, and any diagnostic results supporting the discharge/admit diagnosis, lab results, radiology results, the need for outpatient follow up. Response to treatment: the patient's symptoms have mildly improved after treatment. 09/02 20:31 Order name: CBC with Diff; Complete Time: 22:36 rt 09/02 20:31 Order name: CMP; Complete Time: 22:36 rt 09/02 20:31 Order name: Lipase; Complete Time: 22:36 rt 09/02 20:31 Order name: Urinalysis w/ reflexes; Complete Time: 22:36 rt 09/02 20:31 Order name: CT Abd/Pelvis - IV Contrast Only; Complete Time: 23:01 rt 09/02 20:31 Order name: IV Saline Lock; Complete Time: 21:50 rt 09/02 20:31 Order name: Labs collected and sent rt Administered Medications: 23:40 Drug: fentaNYL (PF) IVP 50 mcg IVP once Route: IVP; Site: right antecubital; ay 23:45 Follow up: Response: No adverse reaction ay 23:42 Not Given (changed to PO): [id number] mg IM once ay 23:43 Drug: Dicyclomine PO 20 mg PO once Route: PO; ay 23:45 Follow up: Response: Medication administered at discharge. ay Disposition Summary: 09/02/24 23:11 Discharge Ordered Notes: Location: Home rt Problem: new rt Symptoms: have improved rt Condition: Stable rt Diagnosis - Abdominal pain, unspecified rt Followup: rt - With: Vladimir Rahman MD - When: 2 - 3 days - Reason: Discharge Instructions: - Discharge Summary Sheet rt - Abdominal Pain, Adult rt Forms: - Medication Reconciliation Form rt - Antibiotic Education rt - Prescription Opioid Use rt - Patient Portal Instructions rt - Leadership Thank You Letter rt Prescriptions: - Carafate 100 mg/mL Oral suspension - take 10 milliliter ORAL route every 6 hours as needed for abdominal pain; 150 rt milliliter; Refills: 0, Product Selection Permitted - Protonix 40 mg Oral Tablet - take 1 tablet ORAL route once daily; 30 tablet; Refills: 0, Product Selection rt Permitted - dicyclomine 10 mg Oral capsule - take 1 capsule ORAL route 3 times per day as needed for abdominal pain; 30 rt capsule; Refills: 0, Product Selection Permitted Signatures: Dispatcher [employer] Luis Garcia MD MD rt Christiane Farris cp4 Jose Dominguez, RN RN ay
--- NOTE | 2024-09-02 23:12 | ER ---
Nurse's Notes [facility] Name: Chitra Garzon Age: 49 yrs Sex: Female : 1975 Arrival Date: 09/02/2024 Time: 19:55 Bed 14 Private MD: Diagnosis: Abdominal pain, unspecified Presentation: 09/02 20:22 Chief complaint: Patient states: pelvic pain that started two days ago. Reports cp4 hysterectomy 2 months ago. Coronavirus screen: Client denies travel out of the [place] in the last 14 days. At this time, the client does not indicate any symptoms associated with coronavirus-19. Ebola Screen: Patient negative for fever greater than or equal to 101.5 degrees Fahrenheit, and additional compatible Ebola Virus Disease symptoms Patient denies exposure to infectious person. Patient denies travel to an Ebola-affected area in the 21 days before illness onset. No symptoms or risks identified at this time. Initial Sepsis Screen: Does the patient meet any 2 criteria? No. Patient's initial sepsis screen is negative. Does the patient have a suspected source of infection? No. Patient's initial sepsis screen is negative. Risk Assessment: Do you want to hurt yourself or someone else? Patient reports no desire to harm self or others. Onset of symptoms was August 31, 2024. 20:22 Method Of Arrival: Ambulatory cp4 20:22 Acuity: JAYDON 3 cp4 Triage Assessment: 20:24 General: Appears in no apparent distress. uncomfortable, Behavior is calm, cooperative, cp4 appropriate for age. Pain: Complains of pain in pelvis. 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 - Infectious Disease History:: Denies. - Social history:: Smoking status: Patient denies any tobacco usage or history of. - Family history:: not pertinent. Screenin:30 [facility] ED Fall Risk Assessment (Adult) History of falling in the last 3 months, ay including since admission No falls in past 3 months (0 pts) Confusion or Disorientation No (0 pts) Intoxicated or Sedated No (0 pts) Impaired Gait No (0 pts) Mobility Assist Device Used No (0 pt) Altered Elimination No (0 pt) Score/Fall Risk Level 0 - 2 = Low Risk Oriented to surroundings, Maintained a safe environment, Educated pt \T\ family on fall prevention, incl call for assistance when getting out of bed. Abuse screen: Denies threats or abuse. Nutritional screening: No deficits noted. Tuberculosis screening: No symptoms or risk factors identified. Assessment: 20:30 General: Appears in no apparent distress. uncomfortable, Behavior is calm, cooperative. ay Pain: Complains of pain in lower abd and LUQ Pain radiates to back Pain currently is 10 out of 10 on a pain scale. Neuro: Level of Consciousness is awake, alert, obeys commands, Oriented to person, place, time, situation, Director Clinical Applications are equal bilaterally Speech is normal. Cardiovascular: Capillary refill < 3 seconds. Respiratory: Airway is patent Respiratory effort is even, unlabored, Respiratory pattern is regular, symmetrical. GI: Abdomen is obese. : No signs and/or symptoms were reported regarding the genitourinary system. EENT: No signs and/or symptoms were reported regarding the EENT system. Derm: No signs and/or symptoms reported regarding the dermatologic system. Vital Signs: 20:22 BP 132 / 91; Pulse 79; Resp 18; Temp 97.7; Pulse Ox 97% ; Weight 104.33 kg; Height 5 cp4 ft. 4 in. ; Pain 9/10; 21:00 BP 111 / 65; Pulse 77; Resp 18; Temp 98.3; Pulse Ox 97% on R/A; ay 21:31 BP 97 / 61; Pulse 76; Resp 17; Pulse Ox 99% on R/A; ay 23:46 BP 103 / 71; Pulse 68; Resp 20; Pulse Ox 99% on R/A; ay 20:22 Body Mass Index 39.48 (104.33 kg, 162.56 cm) cp4 20:22 Pain Scale: Adult cp4 ED Course: 19:58 Patient arrived in ED. [id number] 20:01 Luis Hernadez MD is Attending Physician. rt 20:24 Triage completed. cp4 20:24 Arm band placed on right wrist. Patient placed in waiting room. cp4 20:30 Inserted saline lock: 22 gauge in right antecubital area, using aseptic technique. ay 21:28 Jose Dominguez, RN is Primary Nurse. ay 22:41 CT Abd/Pelvis - IV Contrast Only In Process Unspecified. EDMS 23:11 Rahman, Vladimir, MD is Referral Physician. rt 23:46 No provider procedures requiring assistance completed. IV discontinued, intact, ay bleeding controlled, No redness/swelling at site. Pressure dressing applied. Administered Medications: 23:40 Drug: fentaNYL (PF) IVP 50 mcg IVP once Route: IVP; Site: right antecubital; ay 23:45 Follow up: Response: No adverse reaction ay 23:42 Not Given (changed to PO): [id number] mg IM once ay 23:43 Drug: Dicyclomine PO 20 mg PO once Route: PO; ay 23:45 Follow up: Response: Medication administered at discharge. ay Medication: 20:30 VIS not applicable for this client. ay Outcome: 23:11 Discharge ordered by MD. rt 23:46 Discharged to home ambulatory, ay 23:46 Condition: stable 23:46 Discharge instructions given to patient, Instructed on discharge instructions, follow up and referral plans. Demonstrated understanding of instructions, follow-up care, medications, Prescriptions given X 3, 23:48 Patient left the ED. ay Signatures: Dispatcher [employer] EDFL Debi Martino [email or web address] Luis Hernadez MD MD rt Christiane Farris cp4 Jose Dominguez, RN RN ay
[2024-09-02] MEDS ORDERED: DICYCLOMINE HCL 10 MG CAP ONE (23:28)
[2024-09-02] MEDS ORDERED: FENTANYL CITR 100 MCG/2 ML ONE (23:28)
[2024-09-03 00:12] VITALS: TEMP 98.3
[2024-09-03 00:15] VITALS: O2SAT 99
[2024-09-03 00:16] VITALS: BP 103/71
== END 2024-09-02 23:48 | disposition home or self-care (01) ==
LOC: ER 19:55
DX: R10.9 Unspecified abdominal pain (principal); Z88.5 Allergy status to narcotic agent
CPT/HCPCS: 85025; 81001; 36415; 83690; 80053; 74177; 96374; 99284; Q9967; J3010